=== PATIENT | female | born 1940 | race Caucasian/White ===

== ENCOUNTER → 2017-01-22 | Outpatient (CLI) | payer MEDICARE, OTHER ==
[~2017-01-22] MED LIST: ASPI-496 PO; ATOR10TA9 PO; AZEL23SP NS; BIOT1CAP3 PO; CALC-126 PO; CHOL10003 PO; CLON2TAB2 PO; CYAN50003 PO; CYCL1DRO EACHEYE; DILT300C42 PO; LACT1CAP40 PO; LEVO137T2 PO; LISI-170 PO; LISI40TA PO; METF500T PO; MULT-717 PO; RABE20TA5 PO; VIT1TABL32 PO; [UNRECOGNIZED DRUG - REMARK]; ferrous sulfate PO
[2017-01-22 16:32] LABS: BLOOD UREA NITROGEN 32 mg/dL (7-18)
[2017-01-22 16:38] LABS: ASPARTATE AMINO TRANSFERASE 12 U/L (15-37)
== END | disposition home or self-care (01) ==
LOC: STAR 14:46
PROVIDERS: ATTEND Orthopaedic Surgery
DX: Z01.818 Encounter for other preprocedural examination (principal); R94.31 Abnormal electrocardiogram [ECG] [EKG]; T84.84XD Pain due to internal orthopedic prosthetic devices, implants and grafts, subsequent encounter; Z96.652 Presence of left artificial knee joint; X58.XXXD Exposure to other specified factors, subsequent encounter
CPT/HCPCS: 36415; 80053; 81003; 85025; 87081; 93005

== ENCOUNTER → 2017-02-05 | Outpatient (CLI) | payer MEDICARE ==
[~2017-02-05] MED LIST changes: +REGADENOSON 0.4 MG/5 ML SYRINGE ONE
== END | disposition home or self-care (01) ==
LOC: CFH 12:05
PROVIDERS: ATTEND Internal Medicine Cardiovascular Disease
DX: Z01.810 Encounter for preprocedural cardiovascular examination (principal)
CPT/HCPCS: 78452; 93017; 93306; A9502; J2785